=== PATIENT | male | born 1985 | race Caucasian/White ===

== ENCOUNTER 2019-11-27 17:45 | Emergency (ER) | payer SELFPAY ==
[~2019-11-27] VITALS: Ht 185.4 cm; Wt 86.2 kg
[2019-11-27 18:53] LABS: Source, Urine Clean Catch
[2019-11-27 18:56] LABS: Bilirubin, Urine Neg (Neg); Blood, Urine Neg (Neg); Glucose Qualitative, Urine Neg (Neg); Ketones, Urine Neg (Neg); Leukocyte Esterase, Urine Neg (Neg); Nitrite, Urine Neg (Neg); Protein, Urine Neg (Neg); Urobilinogen, Urine NORM (Normal)
[2019-11-27 18:58] LABS: Appearance, Urine Clear (Clear); Color, Urine Yellow (P-Yellow)
[2019-11-27] MEDS ORDERED: Naprosyn500 MG PO (19:12)
== END 2019-11-27 19:21 | disposition home or self-care (01) ==
LOC: ER 17:45
PROVIDERS: Physician Assistant
DX: I86.1 Scrotal varices (principal)
CPT/HCPCS: 76870; 81003; 99284-25

== ENCOUNTER → 2020-08-20 | Outpatient (CLI) | payer SELFPAY ==
[~2020-08-20] MED LIST: Naprosyn500 MG PO
== END ==
LOC: LAB SHORT 17:15
DX: L08.9 Local infection of the skin and subcutaneous tissue, unspecified (principal)
CPT/HCPCS: 87070; 87205

== ENCOUNTER → 2021-01-03 | Outpatient (CLI) | payer SELFPAY | LOC: LAB SHORT 18:31 → LAB 18:31 | DX: L08.9 Local infection of the skin and subcutaneous tissue, unspecified (principal); B07.8 Other viral warts; L57.8 Other skin changes due to chronic exposure to nonionizing radiation; L85.3 Xerosis cutis; D22.62 Melanocytic nevi of left upper limb, including shoulder; D22.61 Melanocytic nevi of right upper limb, including shoulder; D22.71 Melanocytic nevi of right lower limb, including hip; D22.72 Melanocytic nevi of left lower limb, including hip | CPT/HCPCS: 87070; 87205 ==

== ENCOUNTER 2023-05-14 11:05 | Day surgery (SDC) | payer OTHER ==
[~2023-05-14] VITALS: Ht 185.4 cm; Wt 87.1 kg
[2023-05-14] MEDS ORDERED: HYDROCORTISONE-28 GM PR (11:36)
[2023-05-14 12:50] VITALS: BP 118/68
== END 2023-05-14 12:54 | disposition home or self-care (01) ==
LOC: ORSCSDS 11:05
PROVIDERS: Internal Medicine Gastroenterology
PROC: 0DJD8ZZ Inspection of Lower Intestinal Tract, Via Natural or Artificial Opening Endoscopic (ICD-10-PCS; principal; 2023-05-14 13:00)
DX: K62.5 Hemorrhage of anus and rectum (principal); K64.8 Other hemorrhoids; K64.4 Residual hemorrhoidal skin tags; Z87.891 Personal history of nicotine dependence; Z79.899 Other long term (current) drug therapy
CPT/HCPCS: J2704; J7120